=== PATIENT | male | born 1975 | race American Indian/Alaskan Native ===

== ENCOUNTER 2017-12-09 00:26 | Emergency (ER) | payer SELFPAY ==
[2017-12-09 02:01] LABS: Basophils # (Auto) 0.1 K/mm3 (0.0-0.1); Eosinophils # (Auto) 0.2 K/mm3 (0.0-0.4); Eosinophils % (Auto) 1.3 % (0.0-4.3); Hematocrit 54.8 % (35.5-45.6); Hemoglobin 18.4 gm/dl (11.8-15.2); Lymphocytes # (Auto) 3.6 K/mm3 (1.2-5.4); Lymphocytes % (Auto) 24.7 % (13.4-35.0); Mean Corpuscular HGB Conc 34 % (32-34); Mean Corpuscular Hemoglobin 31 pg (28-32); Mean Corpuscular Volume 93 fl (84-94); Monocytes # (Auto) 1.1 K/mm3 (0.0-0.8); Monocytes % (Auto) 7.7 % (0.0-7.3); Red Blood Count 5.87 M/mm3 (3.65-5.03)
[2017-12-09 02:15] LABS: BUN/Creatinine Ratio 8; Blood Urea Nitrogen 9 mg/dL (9-20); Calcium 9.8 mg/dL (8.4-10.2); Hemolysis Index 33
[2017-12-09 02:35] LABS: INR 0.93 (0.87-1.13)
[2017-12-09 03:18] LABS: Platelet Count 172 K/mm3 (140-440)
--- NOTE | 2017-12-09 07:29 | Emergency Department Report ---
ED ENT HPI - General Chief complaint: Nosebleed Stated complaint: NOSE BLEED Time Seen by Provider: 12/09/17 07:02 Source: patient Mode of arrival: Ambulatory Limitations: No Limitations - History of Present Illness Initial comments: 42 year old male with a past medical history of hypertension off meds for 2 years presents to the hospital complaining of and 3 episodes of epistaxis (left nostril) since last night. No further bleeding since arrival to the ED (over the last 6 hours). Patient states that over the last 2-3 days assessment and pain across his chest worse and lying on side. He denies nausea, vomiting, shortness of breath, calf tenderness, leg edema, headache, or blurred vision. He denies taking any blood thinners including aspirin, Plavix, or Goody powders. Patient states he also recently started smoking cigarettes. Significant other also expressed concerns that the patient snores and appears to have intermittent trouble breathing throughout the night. I'll - Related Data Previous Rx's Medication Instructions Recorded Last Taken Type amLODIPine [Norvasc] 5 mg PO DAILY #30 tab 12/09/17 Unknown Rx Allergies Allergy/AdvReac Type Severity Reaction Status Date / Time No Known Allergies Allergy Verified 12/09/17 01:11 ED Dental HPI - General Chief complaint: Nosebleed Stated complaint: NOSE BLEED Time Seen by Provider: 12/09/17 07:02 Source: patient Mode of arrival: Ambulatory Limitations: No Limitations - Related Data Previous Rx's Medication Instructions Recorded Last Taken Type amLODIPine [Norvasc] 5 mg PO DAILY #30 tab 12/09/17 Unknown Rx Allergies Allergy/AdvReac Type Severity Reaction Status Date / Time No Known Allergies Allergy Verified 12/09/17 01:11 ED Review of Systems ROS: Stated complaint: NOSE BLEED Other details as noted in HPI Comment: All other systems reviewed and negative ED Past Medical Hx - Past Medical History Previous Medical History?: Yes Hx Hypertension: Yes - Surgical History Past Surgical History?: No - Social History Smoking Status: Current Every Day Smoker Substance Use Type: Alcohol - Medications Home Medications: Home Medications Medication Instructions Recorded Confirmed Last Taken Type amLODIPine [Norvasc] 5 mg PO DAILY #30 tab 12/09/17 Unknown Rx ED Physical Exam - General Limitations: No Limitations - Other Other exam information: General: No limitations, patient is alert in no acute distress Head exam: Atraumatic, normocephalic Eyes exam: Normal appearance, pupils equal reactive to light, extraocular movements intact ENT: Moist mucous membrane, some mild bilateral nasal congestion with no signs of active bleeding Neck exam: Normal inspection, full range of motion, no meningismus nontender Respiratory exam: Clear to auscultation bilateral, no wheezes, rales, crackles Cardiovascular: Normal rate and rhythm, normal heart sounds Abdomen: Soft, nondistended, and nontender, with normal bowel sounds, no rebound, or guarding Extremity: Full range of motion normal inspection no deformity Back: Normal Inspection, full range of motion, no tenderness Neurologic: Alert, oriented x3, cranial nerves intact, no motor or sensory deficit Psychiatric: normal affect, normal mood Skin: Warm, dry, intact ED Course Vital Signs 12/09/17 12/09/17 12/09/17 01:07 04:08 04:10 Temperature 98.7 F 98.3 F Pulse Rate 67 61 Respiratory 18 17 Rate Blood Pressure 165/118 Blood Pressure 176/114 [Left] O2 Sat by Pulse 98 98 99 Oximetry 12/09/17 12/09/17 12/09/17 04:38 06:00 07:01 Temperature 97.8 F Pulse Rate 59 L Respiratory 16 16 Rate Blood Pressure 152/102 Blood Pressure 160/103 [Left] O2 Sat by Pulse 97 97 98 Oximetry 12/09/17 12/09/17 07:58 09:01 Temperature 97.7 F Pulse Rate Respiratory Rate Blood Pressure Blood Pressure 145/97 [Left] O2 Sat by Pulse Oximetry ED Medical Decision Making - Lab Data Result diagrams: 12/09/17 01:52 12/09/17 01:52 Lab Results 12/09/17 12/09/17 12/09/17 Range/Units 01:52 01:52 01:52 WBC 14.4 H (4.5-11.0) K/mm3 RBC 5.87 H (3.65-5.03) M/mm3 Hgb 18.4 H (11.8-15.2) gm/dl Hct 54.8 H (35.5-45.6) % MCV 93 (84-94) fl MCH 31 (28-32) pg MCHC 34 (32-34) % RDW 15.0 (13.2-15.2) % Plt Count 172 (140-440) K/mm3 Lymph % (Auto) 24.7 (13.4-35.0) % Green % (Auto) 7.7 H (0.0-7.3) % Eos % (Auto) 1.3 (0.0-4.3) % Baso % (Auto) 1.0 (0.0-1.8) % Lymph # 3.6 (1.2-5.4) K/mm3 Green # 1.1 H (0.0-0.8) K/mm3 Eos # 0.2 (0.0-0.4) K/mm3 Baso # 0.1 (0.0-0.1) K/mm3 Seg Neutrophils % 65.3 (40.0-70.0) % Seg Neutrophils # 9.4 H (1.8-7.7) K/mm3 PT 12.9 (12.2-14.9) Sec. INR 0.93 (0.87-1.13) APTT 28.0 (24.2-36.6) Sec. Sodium 142 (137-145) mmol/L Potassium 4.2 (3.6-5.0) mmol/L Chloride 103.5 (98-107) mmol/L Carbon Dioxide 28 (22-30) mmol/L Anion Gap 15 mmol/L BUN 9 (9-20) mg/dL Creatinine 1.1 (0.8-1.5) mg/dL Estimated GFR > 60 ml/min BUN/Creatinine Ratio 8 % Glucose 113 H (75-100) mg/dL Calcium 9.8 (8.4-10.2) mg/dL Troponin T < 0.010 (0.00-0.029) ng/mL 12/09/17 Range/Units 04:11 WBC (4.5-11.0) K/mm3 RBC (3.65-5.03) M/mm3 Hgb (11.8-15.2) gm/dl Hct (35.5-45.6) % MCV (84-94) fl MCH (28-32) pg MCHC (32-34) % RDW (13.2-15.2) % Plt Count (140-440) K/mm3 Lymph % (Auto) (13.4-35.0) % Green % (Auto) (0.0-7.3) % Eos % (Auto) (0.0-4.3) % Baso % (Auto) (0.0-1.8) % Lymph # (1.2-5.4) K/mm3 Green # (0.0-0.8) K/mm3 Eos # (0.0-0.4) K/mm3 Baso # (0.0-0.1) K/mm3 Seg Neutrophils % (40.0-70.0) % Seg Neutrophils # (1.8-7.7) K/mm3 PT (12.2-14.9) Sec. INR (0.87-1.13) APTT (24.2-36.6) Sec. Sodium (137-145) mmol/L Potassium (3.6-5.0) mmol/L Chloride (98-107) mmol/L Carbon Dioxide (22-30) mmol/L Anion Gap mmol/L BUN (9-20) mg/dL Creatinine (0.8-1.5) mg/dL Estimated GFR ml/min BUN/Creatinine Ratio % Glucose (75-100) mg/dL Calcium (8.4-10.2) mg/dL Troponin T < 0.010 (0.00-0.029) ng/mL - EKG Data -: EKG Interpreted by Me (sally) EKG shows normal: sinus rhythm, axis (qrs -57), QRS complexes (qrs 96), ST-T waves (no stemi/t inv) Rate: normal (64) - EKG Data When compared to previous EKG there are: previous EKG unavailable 12/09/17 07:30 Repeat ED performed at 6:13 AM without acute changes compared to previous - Medical Decision Making Patient states since being in the ED has not had any chest pain. EKG without ischemia and 3 negative cardiac enzymes. No coagulopathy or renal insufficiency identified all labs. Patient received hydralazine by mouth for hypertension. No signs of hypertensive emergency at this time. Will be started on the medication and encouraged follow-up. It Also it is possible the patient has sleep apnea based on his description of his significant other. Further workup by PMD recommended. bp improved with hydralzine, pt asx, will d/c - Differential Diagnosis coagulopathy, hypertensive emergency, uremia, med noncompliance Critical Care Time: No Critical care attestation.: If time is entered above; I have spent that time in minutes in the direct care of this critically ill patient, excluding procedure time. ED Disposition Clinical Impression: Epistaxis, Uncontrolled hypertension, Noncompliance with medication regimen Disposition: TO HOME OR SELFCARE Is pt being admited?: No Does the pt Need Aspirin: No Condition: Stable Instructions: Epistaxis (ED), Hypertension (ED) Additional Instructions: Take the medication as prescribed. Follow up with your doctor or the doctor/ clinic provided. Return if symptoms worsen as indicated by your discharge instructions. You were started on Norvasc 5 mg. The dose may need to be increased to 10 mg depending on your blood pressure response. Please continue to monitor your blood pressure at home and follow-up. Follow up with a primary care doctor regarding your concerns of possible sleep apnea. You will need an outpatient sleep study to diagnosis this condition. Prescriptions: amLODIPine [Norvasc] 5 mg PO DAILY #30 tab Referrals: NALINI DYE MD [Primary Care Provider] - 3-5 Days [facility] [Provider Group] - 3-5 Days (Primary care clinic) LARRY GUNDERSON MD [Staff Physician] - 3-5 Days (Primary care doctor) Time of Disposition: :01
[2017-12-09] MEDS ORDERED: APRESOLINE PO ONE (08:00)
[2017-12-09 09:02] VITALS: BP 145/97
== END 2017-12-09 09:13 | disposition home or self-care (01) ==
LOC: ED 00:26
DX: R04.0 Epistaxis (principal); I10 Essential (primary) hypertension; F17.200 Nicotine dependence, unspecified, uncomplicated
CPT/HCPCS: 36415; 80048; 84484; 85025; 85610; 85730; 93005; 93010